=== PATIENT | female | born 1970 | race African-American/Black ===

== ENCOUNTER 2019-01-30 10:18 | Emergency (ER) | payer SELFPAY | END 2019-01-30 11:55 | disposition home or self-care (01) | LOC: ERS 10:18 | DX: J06.9 Acute upper respiratory infection, unspecified (principal); I10 Essential (primary) hypertension; Z79.899 Other long term (current) drug therapy | CPT/HCPCS: 99283 ==

== ENCOUNTER 2019-10-19 07:11 | Emergency (ER) | payer SELFPAY ==
[2019-10-19] MEDS ORDERED: Ketorolac Tromethamine 30 MG/ML VIAL ONE (08:26)
== END 2019-10-19 08:45 | disposition home or self-care (01) ==
LOC: ERS 07:11
DX: K02.9 Dental caries, unspecified (principal); K03.81 Cracked tooth; I10 Essential (primary) hypertension; Z79.899 Other long term (current) drug therapy
CPT/HCPCS: 96372; 99282; J1885

== ENCOUNTER 2024-06-17 15:10 | Emergency (ER) | payer OTHER, SELFPAY | END 2024-06-17 16:48 | disposition home or self-care (01) | LOC: ERS 15:10 | DX: H10.9 Unspecified conjunctivitis (principal); I10 Essential (primary) hypertension; Z79.899 Other long term (current) drug therapy | CPT/HCPCS: 99282 ==